=== PATIENT | male | born 1975 | race African-American/Black ===

== ENCOUNTER 2020-08-09 20:55 | Observation (INO) | payer BC, OTHER, SELFPAY ==
--- NOTE | ~2020-08-09 | US_ITS ---
EXAMINATION: US right upper quadrant DATE: 08/10/2020 12:08 INDICATION: Abdominal pain. TECHNIQUE: Multiple grayscale and Doppler ultrasound images of the abdomen were obtained. COMPARISON: None FINDINGS: The visualized portions of the head of the pancreas are normal. The liver demonstrates diff usely heterogeneous echogenicity. No liver surface nodularity. The gallbladder is normal in size and contains sludge. No gallstones or gallbladder wall thickening. No sonographic Lovell sign. The common duct is normal and measures 4 mm. IMPRESSION: 1. Diffusely heterogeneous liver, most likely steatosis. Metastatic disease or cirrhosis may have a s imilar appearance. Abdomen MRI without and with contrast is recommended. Reviewed, dictated and finalized at location [facility] IMPRESSION: 1. Diffusely heterogeneous liver, most likely steatosis. Metastatic disease or cirrhosis may have a similar appearance. Abdomen MRI without and with contrast is recommended.
--- NOTE | ~2020-08-09 | XR_ITS ---
XR chest 1V portable 08/10/2020 05:53 Indication: Chest pain Procedure: AP portable chest Comparison: No prior studies for comparison. Findings: Heart size normal. No focal air space disease, pulmonary edema, pleural effusion or suspect ed pneumothorax. No acute osseous abnormality. Impression: 1: No acute cardiopulmonary disease. Reviewed, dictated and finalized at location [facility] Impression: 1: No acute cardiopulmonary disease.
[2020-08-09 21:01] VITALS: BP 160/98; PULSE 68; RESP 14; TEMP 36.9; O2SAT 98
--- NOTE | 2020-08-09 21:04 | ECG_ITS ---
Measurements Intervals Leonidas Rate: 65 P: 9 CT: 180 QRS: -11 QRSD: 109 T: -7 QT: 390 QTc: 408 Interpretive Statements SINUS RHYTHM NONSPECIFIC T-WAVE ABNORMALITY- INF/LAT LEADS BASELINE WANDER- I, II, AVR, AVL, AVF, V4-V6 BORDERLINE ECG Electronically Signed On 08-10-2020 6:45:05 [employer] TE[employer] by Bhargav Mejia D.O.
--- NOTE | 2020-08-09 21:46 | ED.CHESTPAIN ---
HPI - Chest Pain General Chief Complaint: Abdominal Pain Stated Complaint: epigastric pain Time Seen by Provider: 08/09/20 21:15 Source: patient Mode of arrival: ambulatory Limitations: no limitations History of Present Illness HPI narrative: Patient is a 42-year-old male complaining of substernal chest pain, 6 out of 10, nonradiating, accompanied by nausea and diaphoresis, currently his pain is 0 out of 10, episode lasted for approximately 2 hours, started tonight. Patient denies any shortness of breath, abdominal pain, vomiting, fever or chills. Related Data Home Medications Medication Instructions Recorded Confirmed irbesartan 150 mg tablet 300 mg PO DAILY tablet 07/22/19 05/04/20 Allergies Allergy/AdvReac Type Severity Reaction Status Date / Time No Known Allergies Allergy Verified 05/04/20 13:13 Review of Systems Review of Systems: All systems reviewed & are unremarkable except as noted in HPI and below Constitutional: Constitutional: Denies body ache(s), Denies chills, Denies excessive sweating, Denies fatigue, Denies fever(s), Denies headache(s), Denies lethargy, Denies malaise, Denies weakness and Denies weight loss Eyes: Eyes: Denies blurry vision, Denies change in vision and Denies loss of vision ENT: Denies dizziness, Denies ear discharge, Denies headache(s), Denies lip swelling, Denies epistaxis, Denies nasal congestion, Denies neck pain, Denies throat swelling and Denies tongue swelling Cardiovascular: Cardiovascular: Denies diaphoresis, Denies rapid heart rate, Denies edema, Denies irregular heart rhythm, Denies lightheadedness, Denies palpitations, Denies dyspnea and Denies dyspnea on exertion Respiratory: Respiratory: Denies chest congestion, Denies cough, Denies hemoptysis, Denies dyspnea and Denies dyspnea on exertion Gastrointestinal: Gastrointestinal: Denies abdominal pain, Denies melena, Denies hematochezia, Denies diarrhea, Denies nausea, Denies vomiting and Denies hematemesis Musculoskeletal: Musculoskeletal: Denies abnormal gait, Denies deformity, Denies joint swelling, Denies limited range of motion, Denies neck pain and Denies numbness Neurologic: Denies Abnormal speech present, Denies abnormal gait, Denies confusion, Denies dizziness, Denies headache(s), Denies focal weakness, Denies loss of vision, Denies numbness, Denies Other visual disturbances, Denies Sensory deficit (Neuro) and Denies weakness Psychiatric: Psychiatric: Denies confusion, Denies depression, Denies auditory hallucinations, Denies homicidal ideation and Denies suicidal ideation Endocrine: Endocrine: Denies cold intolerance, Denies excessive sweating, Denies fatigue, Denies heat intolerance and Denies palpitations Hematologic/Lymphatic: Hematologic/Lymphatic: Denies easy bleeding and Denies easy bruising Allergic/Immunologic: Allergic/Immunologic: Denies lip swelling, Denies throat swelling and Denies tongue swelling PMFSH Past Medical History Medical History (Updated 08/09/20 @ 23:42 by Moose Michael MD) HLD (hyperlipidemia) Surgical History Surgical History (Updated 07/22/19 @ 14:57 by Marco Colon MD) History of appendectomy SBO (small bowel obstruction) Family History Family History Father Family history of malignant neoplasm Social History Social History Smoking status: Never smoker Second hand tobacco smoke exposure: No Alcohol intake: current Drinks per week: 3 Substance use: never Substance use type: does not use Gender identity (if verbalized by the patient): Male Exam Const: General: cooperative, healthy appearing, comfortable, no acute distress, well developed, alert and awake; No confusion Orientation/consciousness: oriented to person, oriented to place, oriented to time, patient oriented x3 and No confusion Limitations: no limitations HENMT: Head: normal to i
[2020-08-09] MEDS: ASPIRIN 81 MG CHEWABLE TABLET 324 MG PO (21:49)
[2020-08-09 22:00] VITALS: BP 143/77; PULSE 65; RESP 21; O2SAT 100
[2020-08-09 22:08] LABS: Basophils Percent Auto 0.5 % (0.2-1.2); Eosinophils Absolute Auto 0.1 K/mm3 (0-0.3); Eosinophils Percent Auto 1.8 % (0-4.4); Hematocrit 40.8 % (42.0-52.0); Hemoglobin 14.1 g/dL (14.0-18.0); Immature Granulocyte Absolute 0.02 K/mm3 (0.00-0.031); Immature Granulocyte Percent A 0.4 % (0-0.5); Lymphocytes Absolute Auto 1.58 K/mm3 (0.9-3.2); Lymphocytes Percent Auto 28.5 % (18.3-44.2); Mean Corpuscular HGB Conc 34.6 g/dl (32-36); Mean Corpuscular Hemoglobin 26.7 pg (26-34); Mean Corpuscular Volume 77.3 fl (80-100); Mean Platelet Volume 11.6 fl (7.4-10.4); Monocytes Absolute Auto 0.4 K/mm3 (0.1-0.6); Monocytes Percent Auto 7.4 % (2.6-8.5); Neutrophils Absolute Auto 3.4 K/mm3 (1.3-6.7); Neutrophils Percent Auto 61.4 % (45.5-73.1); Platelet Count Result 207 k/mm3 (150-375); Red Blood Count 5.28 M/mm3 (4.6-6.20); White Blood Count 5.6 K/mm3 (4.5-10.0)
[2020-08-09 22:18] LABS: Prothrombin Time 13.4 Seconds (11.1-14.7)
[2020-08-09 22:19] LABS: Partial Thromboplastin Time 30.7 SECONDS (22.3-36.8)
[2020-08-09 22:21] LABS: Alanine Aminotransferase 206 U/L (4-50); Albumin Level 4.7 g/dL (3.5-5.1); Alkaline Phosphatase 279 U/L (38-126); Anion Gap 9 mmol/L (8-16); Aspartate Amino Transferase 88 U/L (17-59); Bilirubin,Total 0.6 mg/dL (0.2-1.3); Blood Urea Nitrogen 13 mg/dL (9-20); Calcium 9.8 mg/dL (8.4-10.2); Carbon Dioxide 27 mmol/L (22-30); Chloride 102 mmol/L (98-107); Estimated CRCL calculation 116 ml/min; Estimated Glomerular Filt Rate > 60; Glucose 131 mg/dL (75-110); Lipase 18 U/L (23-300); Potassium 4.1 mmol/L (3.4-5.0); Sodium 138 mmol/L (137-145)
[2020-08-09 22:32] LABS: Troponin I < 0.012 ng/mL (0.000-0.034)
[2020-08-09 23:14] VITALS: BP 145/86; PULSE 63; RESP 17; O2SAT 96
[2020-08-10] VITALS (11 sets, daily range): BP systolic 110–154; BP diastolic 73–98; PULSE 58–77; RESP 14–20; TEMP 36.1–36.5; O2SAT 95–100
--- NOTE | 2020-08-10 01:12 | ADMGEN ---
This patient, Erum Vázquez, was admitted to [facility]. Patient/family oriented to hospital policies and general routines including ID bracelet, bed and alarms, visiting hours, pain management, procedures, bathroom and other care routines, personal items, smoking policy, room service/diet, and visiting hours. Information on how to activate the Rapid Response Team has been discussed. Patient/Family are encouraged to report perceived risks to care and to ask questions if they do not understand what they are told or what they should do.
[2020-08-10 01:34] LABS: Troponin I < 0.012 ng/mL (0.000-0.034)
[2020-08-10] MEDS: FAMOTIDINE 20 MG/2 ML VIAL IV PUSH (02:15)
[2020-08-10] MEDS: ZOLPIDEM TARTRATE (*CRX) 5 MG TABLET 10 MG PO (02:15)
--- NOTE | 2020-08-10 04:15 | PM.IMHP ---
H&P: HPI History of Present Illness Date/Time: 08/10/20 02:15 Chief Complaint: chest pain Narrative: This is a pleasant obese 44-year-old male who presented to the hospital with a complaint of substernal burning chest pain that lasted about 45 minutes prior to arrival to the hospital. The patient describes drinking grapefruit juice while seated and immediately experiencing midsternal burning pain. He denies any associated symptoms of shortness of breath, abdominal pain, nausea, vomiting, palpitations, or shortness of breath. The patient's who is a physician gave him a GI cocktail at home which resolved his symptoms after about 45 minutes. The patient has no previous history of coronary artery disease or GI issues. He is not known to have peptic ulcer disease. the patient's urged him to come to the hospital for evaluation. While in the emergency room the patient was found to have elevated liver enzymes which represent a cholestatic pattern of transaminitis. The patient remarks that he has a history of having elevated liver enzymes in the past and this has been attributed to fatty liver disease. He is not sure how high his liver enzymes have been in the past. He has previously been tested for hepatitis viruses and was negative. Tonight he does not have any further discomfort. ER provider has consulted Cardiology, Dr. Dawkins who has specifically asked that we admit the patient to the hospital so he can evaluate the patient in the morning. Patient has no other complaints at this time. Review of Systems Review of Systems: All systems reviewed & are unremarkable except as noted in HPI and below PMFSH Past Medical History Medical History Essential (primary) hypertension HLD (hyperlipidemia) Surgical History Surgical History History of appendectomy SBO (small bowel obstruction) Family History Family History Father Family history of malignant neoplasm Social History Social History Smoking status: Never smoker Second hand tobacco smoke exposure: No Alcohol intake: current Drinks per week: 3 Substance use: never Substance use type: does not use Gender identity (if verbalized by the patient): Male Spiritual care concerns: No Meds Home Medications and Allergies Home Medications Medication Instructions Recorded Confirmed Type irbesartan 150 mg tablet 300 mg PO DAILY tablet 07/22/19 08/10/20 History nebivolol 10 mg tablet 10 mg PO DAILY #90 tablet 06/10/20 08/10/20 Rx amlodipine 10 mg tablet 10 mg PO DAILY #90 tablet 07/28/20 08/10/20 Rx zolpidem [Ambien] 10 mg PO HS 08/10/20 08/10/20 History Allergies Allergy/AdvReac Type Severity Reaction Status Date / Time No Known Allergies Allergy Verified 05/04/20 13:13 Vital Signs Vital Signs - 24 hr 08/09/20 21:01 08/09/20 22:00 08/09/20 23:14 Temperature 36.9 C Pulse Rate 68 65 63 Respiratory Rate 14 21 H 17 Blood Pressure 160/98 H 143/77 H 145/86 H Pulse Oximetry 98 100 96 08/10/20 00:35 08/10/20 00:43 08/10/20 01:10 Temperature 36.1 C L Pulse Rate 59 L 58 L 64 Respiratory Rate 15 14 14 Blood Pressure 124/78 142/92 H 154/98 H Pulse Oximetry 98 100 100 08/10/20 01:22 08/10/20 01:43 08/10/20 04:00 Temperature Pulse Rate 65 77 69 Respiratory Rate Blood Pressure Pulse Oximetry Exam Const: General: cooperative, no acute distress, alert and awake Nutritional Appearance: well nourished and obese Orientation/consciousness: patient oriented x3 HENMT: Head: normal to inspection General nose exam: Normal external nose present Face and sinus: normal facial exam Mouth: Yes Normal oral and palatal mucosa present and Yes oropharynx normal Eyes: Pupils: Equal, round and reactive
[2020-08-10 05:04] LABS: Basophils Percent Auto 0.5 % (0.2-1.2); Eosinophils Absolute Auto 0.1 K/mm3 (0-0.3); Eosinophils Percent Auto 2.2 % (0-4.4); Hematocrit 38.4 % (42.0-52.0); Hemoglobin 13.4 g/dL (14.0-18.0); Immature Granulocyte Absolute 0.02 K/mm3 (0.00-0.031); Immature Granulocyte Percent A 0.3 % (0-0.5); Lymphocytes Absolute Auto 3.09 K/mm3 (0.9-3.2); Lymphocytes Percent Auto 47.5 % (18.3-44.2); Mean Corpuscular HGB Conc 34.9 g/dl (32-36); Mean Corpuscular Volume 74.6 fl (80-100); Mean Platelet Volume 11.6 fl (7.4-10.4); Monocytes Absolute Auto 0.4 K/mm3 (0.1-0.6); Monocytes Percent Auto 6.3 % (2.6-8.5); Neutrophils Absolute Auto 2.8 K/mm3 (1.3-6.7); Neutrophils Percent Auto 43.2 % (45.5-73.1); Platelet Count Result 218 k/mm3 (150-375); Red Blood Count 5.15 M/mm3 (4.6-6.20); Red Cell Distribution Width 13.5 % (11.5-14.5); White Blood Count 6.5 K/mm3 (4.5-10.0)
[2020-08-10 05:20] LABS: Alanine Aminotransferase 184 U/L (4-50); Albumin Level 4.3 g/dL (3.5-5.1); Alkaline Phosphatase 282 U/L (38-126); Anion Gap 8 mmol/L (8-16); Aspartate Amino Transferase 74 U/L (17-59); Bilirubin,Total 0.9 mg/dL (0.2-1.3); Blood Urea Nitrogen 12 mg/dL (9-20); Calcium 9.4 mg/dL (8.4-10.2); Carbon Dioxide 27 mmol/L (22-30); Chloride 102 mmol/L (98-107); Estimated CRCL calculation 119 ml/min; Estimated Glomerular Filt Rate > 60; Glucose 105 mg/dL (75-110); Magnesium 1.8 mg/dL (1.6-2.3); Potassium 3.9 mmol/L (3.4-5.0); Sodium 137 mmol/L (137-145)
[2020-08-10 05:30] LABS: Troponin I < 0.012 ng/mL (0.000-0.034)
[2020-08-10] MEDS: FAMOTIDINE 20 MG TABLET PO (09:47)
[2020-08-10] MEDS: NEBIVOLOL HCL 5 MG TABLET 10 MG PO (09:47)
[2020-08-10] MEDS: IRBESARTAN 150 MG TABLET 300 MG PO (09:48)
[2020-08-10] MEDS: amLODIPine BESYLATE 5 MG TABLET 10 MG PO (09:51)
--- NOTE | 2020-08-10 11:06 | PM.CNCAR ---
Assessment and Plan Assessment and plan (1) Chest pain at rest: Code(s): R07.9 - Chest pain, unspecified Status: Acute Assessment and Plan: Likely GI in etiology. Gallbladder ultrasound is pending. Will start him on a proton pump inhibitor in the form of Protonix 40 mg p.o. daily. No inpatient workup indicated this point. Patient may be discharged from my perspective. Outpatient stress test to be considered depending on response treatment (2) Essential (primary) hypertension: Code(s): I10 - Essential (primary) hypertension Status: Acute Assessment and Plan: Continue current meds (3) Transaminitis: Code(s): R74.01 - Elevation of levels of liver transaminase levels Status: Acute Assessment and Plan: Gallbladder ultrasound pending. (4) HLD (hyperlipidemia): Code(s): E78.5 - Hyperlipidemia, unspecified Status: Acute Assessment and Plan: On Repatha History of Present Illness History of Present Illness Consult date/time: 08/10/20 11:06 Requesting physician: Moose Michael MD Consult reason: chest pain Reason For Visit: CHEST PAIN Narrative: Date of service 08/10/2020: History patient's 44-year-old male patient of mine who has a history of high blood pressure, hyperlipidemia, elevated LFTs. He was last seen in the office in early July. At that time he was doing well on his blood pressure responded well to Bystolic. He was at home yesterday cooking dinner and drinking some wine. He shortly thereafter started feels some significant acid taste in his mouth. His gave him with equal into the GI cocktail which did help but he did have some persistent epigastric burning. He did have an acidic taste in his mouth and he was throwing up. Whenever he got to the emergency department, he was still having some residual symptoms and laid down and his symptoms immediately went away. He had another episode about 2 weeks ago after taking a vitamin. He otherwise has not been having any exertional chest pain, significant shortness of breath, syncope, presyncope, paroxysmal nocturnal dyspnea, orthopnea, edema palpitations. Review of Systems Review of Systems: All systems reviewed & are unremarkable except as noted in HPI and below Constitutional: Constitutional: Denies weakness Eyes: Eyes: Denies blurry vision ENT: Reports Normal hearing present Cardiovascular: Cardiovascular: Reports chest pain Respiratory: Respiratory: Denies dyspnea Gastrointestinal: Comments: Epigastric discomfort Genitourinary: Genitourinary: Denies dysuria Musculoskeletal: Musculoskeletal: Denies neck pain Integumentary/Breasts: Skin/Breast: Denies dry skin Neurologic: Denies headache(s) Psychiatric: Psychiatric: Denies anxiety and Denies confusion Endocrine: Endocrine: Denies fatigue and Denies flushing Hematologic/Lymphatic: Hematologic/Lymphatic: Denies easy bleeding and Denies easy bruising Allergic/Immunologic: Allergic/Immunologic: Denies lip swelling PMFSH Past Medical History Medical History Essential (primary) hypertension HLD (hyperlipidemia) Surgical History Surgical History History of appendectomy SBO (small bowel obstruction) Family History Family History (Updated 08/10/20 @ 11:12 by Ash Barajas MD) Father Family history of malignant neoplasm Hypertension Social History Social History Smoking status: Never smoker Second hand tobacco smoke exposure: No Alcohol intake: current Drinks per week: 3 Substance use: never Substance use type: does not use Gender identity (if verbalized by the patient): Male Spiritual care concerns: No Meds Home Medications and Allergies Home Medications Medication Instructions Recorded Confirmed Type
--- NOTE | 2020-08-10 13:55 | PM.DS ---
DS: Admitting Diagnosis Admitting Diagnosis Admitting Diagnosis: Chest pain DS: Discharge Diagnosis Discharge Diagnosis (1) Chest pain at rest: Code(s): R07.9 - Chest pain, unspecified Status: Acute Assessment and Plan: Likely GI related -patient states it is worse with citric drinks -troponins negative x3 -telemetry is without abnormalities -no recurrence -cardiology saw the patient and recommends Protonix -patient should consider outpatient stress test if the symptoms continue (2) Transaminitis: Code(s): R74.01 - Elevation of levels of liver transaminase levels Status: Acute Assessment and Plan: Ultrasound reviewed which shows likely fatty liver but has differentials. Patient states that he has had this for while and even had a biopsy which confirmed this is fatty liver. He should follow-up with his primary care physician who regularly follows this. (3) Essential (primary) hypertension: Code(s): I10 - Essential (primary) hypertension Status: Acute Assessment and Plan: Continue amlodipine, irbesartan, and nebivolol at home (4) GERD (gastroesophageal reflux disease): Code(s): K21.9 - Gastro-esophageal reflux disease without esophagitis Status: Acute Assessment and Plan: Likely diagnosis of the patient's chest pain -will do a month of Protonix to see if this improves -follow-up with cardiology as needed -spoke to him about outpatient EGD which he does not seem interested in -plan to do PPI for 1 month and follow-up with primary care physician -educated come back to emergency room if having any more chest pain not resolved with Tums DS: Summary Hospital Course Reason for hospitalization: Chest pain Hospital Course: Who presented emergency room for chest pain as well as nausea and diaphoresis that lasted 2 hours. Troponins negative x3. Nonspecific T-wave abnormalities in the inferior lateral leads that are not very concerning. Chest x-ray was normal. No other signs of heart failure. Patient received a GI cocktail which is also reassuring. This pain happens when he drinks citric drinks and could very well be gastritis. He was started on Protonix outpatient. He had no recurrence of the chest pain and telemetry was normal during his stay. Cardiology was consulted who recommended above treatment and if the chest pain continues could consider outpatient stress test. The patient also had abnormal liver enzymes which were detailed above. Overall, the patient felt back to baseline and was ready for discharge. He was educated about the worrisome signs and symptoms come back to emergency room for was discharged stable condition. He is to follow-up with primary care physician 1-2 weeks after discharge. Status at Discharge Functional status at discharge: independent ambulation Overall status at discharge: patient is back to baseline Time Spent with Patient Time attestation: Total time spent providing and/or coordinating discharge services:34 min Time spent: Greater than 30 minutes Exam Narrative: Exam Narrative: General: Well developed well nourished patient in NAD HEENT: normocephalic Neck: supple Neuro: Alert and oriented x4 CV:RRR telemetry without abnormal alarm reviews Resp:CTA Abd: Soft, non distended. No pain to palpation. Positive bowel sounds Extremities: No swelling, erythema, or pain to palpation. DS: Data Data Completed and Pending Labs on day of discharge: Labs from last 24 hours 08/10/20 08/10/20 08/10/20 04:55 04:55 04:55 WBC 6.5 RBC 5.15 Hgb 13.4 L Hct 38.4 L MCV 74.6 L MCH 26.0 MCHC 34.9 RDW 13.5 Plt Count 218 MPV 11.6 H Immature Gran % (Auto) 0.3 Neut % (Auto) 43.2 L Lymph % (Auto) 47.5 H Kershaw % (Auto) 6.3 Eos % (Auto) 2.2 Baso % (Auto) 0.5 Lymph # (Auto) 3.09 Kershaw # (Auto) 0.4 Eos # (Auto) 0.1 Baso # (Auto) 0.0 Abs Immat Gr
--- NOTE | 2020-08-10 14:18 | PC.NURSE ---
1410-pt given D/C orders and instructions. Questions answered and verbalized understanding. AOx4. No chest pain noted at time of D/C. PIV removed intact. Ambulated per request to waiting vehicle. No distress noted or verbalized at time of departure.
== END 2020-08-10 14:10 | disposition home or self-care (01) ==
LOC: ANHED 23:42 → ANHCPC 08-10 00:26
PROVIDERS: Internal Medicine Cardiovascular Disease; Admitting Provider Family Medicine; Emergency Provider Emergency Medicine; PCP Family Medicine; Visit Provider Internal Medicine
DX: R07.9 Chest pain, unspecified (principal); R74.01 Elevation of levels of liver transaminase levels; E78.5 Hyperlipidemia, unspecified; I10 Essential (primary) hypertension; K21.9 Gastro-esophageal reflux disease without esophagitis
CPT/HCPCS: 36415; 71045; 76705; 80053; 83690; 83735; 84484; 85025; 85610; 85730; 93005; 96374; 99285; A9270; G0378

== ENCOUNTER 2021-05-23 08:18 | Outpatient (CLI) | payer BC, OTHER, SELFPAY ==
--- NOTE | ~2021-05-23 | XR_ITS ---
XR shoulder LT min 2V 05/23/2021 08:39 INDICATION: Left shoulder pain PROCEDURE: 4 views left shoulder COMPARISON: No prior studies for comparison. FINDINGS: Fracture, dislocation or subluxation is not identified. The soft tissues appear within norm al limits. No foreign bodies are identified. IMPRESSION: 1: NO ACUTE BONE OR JOINT ABNORMALITY IDENTIFIED. Reviewed, dictated and finalized at location B.
== END 2021-05-23 08:19 | disposition home or self-care (01) ==
LOC: ANHIMG 08:23
PROVIDERS: PCP Family Medicine; Visit Provider Nurse Practitioner Family
DX: M25.512 Pain in left shoulder (principal)
CPT/HCPCS: 73030

== ENCOUNTER 2021-08-19 09:07 | Outpatient (RCR) | payer BC, OTHER, SELFPAY ==
[2021-08-19 15:09] VITALS: BP 156/94; PULSE 72; RESP 20; TEMP 36.1; O2SAT 99
[2021-08-19] MEDS: FAMOTIDINE 20 MG TABLET PO (15:14)
[2021-08-19] MEDS: ACETAMINOPHEN 325 MG TABLET 650 MG PO (15:14)
[2021-08-19] MEDS: diphenhydrAMINE HCl CAP 25 MG CAPSULE PO (15:14)
[2021-08-19 16:14] VITALS: BP 144/91; PULSE 65; O2SAT 100
== END 2021-08-19 17:00 ==
LOC: AMCINF 09:07
PROVIDERS: PCP Family Medicine; Visit Provider Internal Medicine Hematology & Oncology
DX: U07.1 COVID-19 (principal); I10 Essential (primary) hypertension
CPT/HCPCS: A9270; M0243; Q0244

== ENCOUNTER 2022-01-19 08:44 | Outpatient (RCR) | payer BC, OTHER, SELFPAY ==
[2022-01-19 09:15] VITALS: BMI 40.8
[2022-01-19 09:22] VITALS: BMI 40.8
== END 2022-04-18 09:42 | disposition home or self-care (01) ==
LOC: ANHDMC 08:44
PROVIDERS: PCP Family Medicine; Visit Provider Nurse Practitioner Family
DX: E11.9 Type 2 diabetes mellitus without complications (principal); Z71.3 Dietary counseling and surveillance
CPT/HCPCS: 97802

== ENCOUNTER 2022-07-13 15:30 | Outpatient (RCR) | payer BC, OTHER, SELFPAY | END 2022-08-30 23:59 | disposition home or self-care (01) | LOC: ANHDMC 15:30 | PROVIDERS: PCP Family Medicine; Visit Provider Nurse Practitioner Family | DX: E11.65 Type 2 diabetes mellitus with hyperglycemia (principal); Z71.89 Other specified counseling | CPT/HCPCS: G0108 ==